=== PATIENT | male | born 1975 | race Caucasian/White ===

== ENCOUNTER 2019-03-01 08:26 | Emergency (ER) | payer BC ==
[2019-03-01] MEDS ORDERED: predniSONE 20 MG TAB PO ONE (08:47)
--- NOTE | 2019-03-01 09:09 | RAD ---
EXAM DESCRIPTION: Lumbar Spine 3 Views CLINICAL HISTORY: 44 years Male, pain l4-s1 COMPARISON: None. FINDINGS: 3 views of the lumbar spine show vertebral body heights to be maintained. Straightening of the normal lumbar lordosis is seen. Mild curvature of the mid lumbar spine with convexity towards the left is seen. Mild disc space narrowing and marginal endplate osteophytes at L2-3 are seen with mild disc space narrowing at L3-4. Mild marginal endplate osteophytes from L3 through S1 are seen. Mild disc space narrowing at L4-5 and L5-S1 is seen. Moderate volume of formed fecal material throughout the colon is seen. IMPRESSION: [id number] disc degenerative changes of the lumbar spine are seen. Moderate constipation or obstipation colon is seen. Mild levocurvature of the lumbar spine is seen with mild degenerative changes of the left sacroiliac joint. Electronically signed by: Lul Mccurdy MD 03/01/2019 9:06 AM CDT
[2019-03-01] MEDS ORDERED: KETOROLAC TROMETHAMINE INJ 30 MG/ML VIAL IM ONE (09:20)
[2019-03-01] MEDS ORDERED: HYDROcodone 7.5MG/APAP 325MG 1 EA TAB PO ONE (09:20)
--- NOTE | 2019-03-01 09:30 | ED.PDOC ---
History of Present Illness - General Chief Complaint: Back Pain or Injury Stated Complaint: low back pain Time Seen by Provider: 03/01/19 08:28 Source: patient Exam Limitations: no limitations - History of Present Illness Initial Comments: the patient a 44-year-old male presenting to the emergency room secondary to acute worsening of low back pain Thursday morning simply with doing normal activities. He has had a issue with his low back several years ago that lasted about a month. No history of any recent trauma. No neurological changes. He does have tenderness to palpation bilaterally adjacent to the lower lumbar spine from L3-S1. No gross deformity. No step-off. No spinous process tenderness to palpation. He did receive a dose of Toradol and some low-dose Flexeril as a prescription from the walk-in clinic on Thursday. Timing/Duration: other - 2 days Severity: moderate Improving Factors: nothing Worsening Factors: movement Associated Symptoms: denies symptoms Allergies/Adverse Reactions: Allergies NO KNOWN ALLERGY Allergy (Verified 03/01/19 08:33) Home Medications: Ambulatory Orders Cyclobenzaprine HCl [Flexeril] 5 mg PO Q6H PRN 03/01/19 Tramadol HCl 50 mg PO Q8HR PRN #20 tab 03/01/19 predniSONE [Prednisone] 40 mg PO DAILY #10 tab 03/01/19 Review of Systems - Review of Systems Constitutional: States: no symptoms reported EENTM: States: no symptoms reported Respiratory: States: no symptoms reported Cardiology: States: no symptoms reported Gastrointestinal/Abdominal: States: no symptoms reported Genitourinary: States: no symptoms reported Musculoskeletal: States: back pain Skin: States: no symptoms reported Neurological: States: no symptoms reported Endocrine: States: no symptoms reported All other Systems: No Change from Baseline Past Medical History (General) - Patient Medical History Hx Asthma: No Hx Congestive Heart Failure: No Hx Diabetes: No Hx Gastroesophageal Reflux: No Surgical History: other - Social History Hx Tobacco Use: Yes Family Medical History - Family History Mother Family History: Unknown Physical Exam - Physical Exam General Appearance: Alert, Comfortable, No apparent distress Eye Exam: bilateral normal Ears, Nose, Throat: hearing grossly normal Neck: full range of motion, supple Respiratory: no respiratory distress, no accessory muscle use Cardiovascular/Chest: normal peripheral pulses, no edema Peripheral Pulses: radial,right: 2+, radial,left: 2+ Rectal Exam: deferred Back Exam: no vertebral tenderness, CVA tenderness (R), CVA tenderness (L) - see history of present illness, muscle spasm Extremity: non-tender, normal inspection, no pedal edema, normal capillary refill Neurologic: brick off bearer II-XII nml as tested, alert, normal mood/affect, oriented x 3 Skin Exam: normal color Comments: Vital Signs - 24 hr 03/01/19 08:34 Temperature 97.4 F L Pulse Rate [ 78 right brachial] Respiratory 20 Rate Blood Pressure 139/100 [right brachial ] O2 Sat by Pulse 98 Oximetry Progress - Progress Progress: 03/01/19 09:30 the patient's a 44-year-old male presenting to the emergency room secondary to lower lumbar back pain with associated muscle spasm the last 2 days without any evidence of recent trauma. X-ray shows no evidence of any acute pathology. The patient has been instructed to do stretching exercises, apply topical heat and do inversion therapy if possible. He has also been instructed longer term to do cycling, rowing or swimming to help reduce problems in the future. He is being given a large dose of Toradol here along with a moderate dose of prednisone and a dose of hydrocodone. He will be written for tramadol for as needed use in the coming days as well as prednisone 40 mg for the next 5 days. He does need to take a daily laxative prevent further constipation. I do recommend he see a chiropractor tomorrow or today for additional adjustment. ER warnings were given. No neurological changes. - Results/Orders Results/Orders: x-ray lumbar spine shows mild degenerative changes. No significant subluxation and no compression. Mild curvature. Departure - Departure Clinical Impression: Acute myofascial strain of lumbar region Disposition: Discharge to Home or Self Care Condition: Fair Departure Forms: ED Discharge - Pt. Copy, Patient Portal Self Enrollment Instructions: DI for Low Back Pain, DI for Back Spasm Diet: regular diet Activity: increase activity as tolerated Prescriptions: Tramadol HCl 50 mg PO Q8HR PRN #20 tab PRN Reason: Moderate To Severe Pain predniSONE [Prednisone] 40 mg PO DAILY #10 tab Home Medications: Ambulatory Orders Cyclobenzaprine HCl [Flexeril] 5 mg PO Q6H PRN 03/01/19 Tramadol HCl 50 mg PO Q8HR PRN #20 tab 03/01/19 predniSONE [Prednisone] 40 mg PO DAILY #10 tab 03/01/19 Additional Instructions: the patient's a 44-year-old male presenting to the emergency room secondary to lower lumbar back pain with associated muscle spasm the last 2 days without any evidence of recent trauma. X-ray shows no evidence of any acute pathology. The patient has been instructed to do stretching exercises, apply topical heat and do inversion therapy if possible. He has also been instructed longer term to do cycling, rowing or swimming to help reduce problems in the future. He is being given a large dose of Toradol here along with a moderate dose of prednisone and a dose of hydrocodone. He will be written for tramadol for as needed use in the coming days as well as prednisone 40 mg for the next 5 days. He does need to take a daily laxative prevent further constipation. I do recommend he see a chiropractor tomorrow or today for additional adjustment. ER warnings were given. No neurological changes.
[2019-03-01 09:50] VITALS: BP 140/93; TEMP 96.6; O2SAT 99
== END 2019-03-01 09:51 | disposition home or self-care (01) ==
LOC: ER 08:26
DX: S39.012A Strain of muscle, fascia and tendon of lower back, initial encounter (principal); M47.817 Spondylosis without myelopathy or radiculopathy, lumbosacral region; Z87.891 Personal history of nicotine dependence; X58.XXXA Exposure to other specified factors, initial encounter; Y92.9 Unspecified place or not applicable
CPT/HCPCS: 72100; J1885; J7512